=== PATIENT | male | born 1940 | race Caucasian/White ===

== ENCOUNTER → 2019-03-28 14:55 | Outpatient (BNVA) | payer MEDICARE, OTHER, SELFPAY | PROVIDERS: Family Provider Family Medicine; PCP Family Medicine; Visit Provider Internal Medicine Cardiovascular Disease | DX: I48.91 Unspecified atrial fibrillation (principal) | CPT/HCPCS: 85610 ==

== ENCOUNTER → 2019-04-17 08:51 | Outpatient (BNVA) | payer MEDICARE, OTHER, SELFPAY | PROVIDERS: Family Provider Family Medicine; PCP Family Medicine; Visit Provider Internal Medicine Cardiovascular Disease | DX: I48.91 Unspecified atrial fibrillation (principal) | CPT/HCPCS: 85610 ==

== ENCOUNTER → 2019-05-15 08:54 | Outpatient (BNVA) | payer MEDICARE, OTHER, SELFPAY | PROVIDERS: Family Provider Family Medicine; PCP Family Medicine; Visit Provider Internal Medicine Cardiovascular Disease | DX: I48.91 Unspecified atrial fibrillation (principal) | CPT/HCPCS: 85610 ==

== ENCOUNTER → 2019-06-12 09:07 | Outpatient (BNVA) | payer MEDICARE, OTHER, SELFPAY | PROVIDERS: Family Provider Family Medicine; PCP Family Medicine; Visit Provider Internal Medicine Cardiovascular Disease | DX: I48.91 Unspecified atrial fibrillation (principal) | CPT/HCPCS: 85610 ==

== ENCOUNTER → 2019-07-10 09:56 | Outpatient (BNVA) | payer MEDICARE, OTHER, SELFPAY | PROVIDERS: Family Provider Family Medicine; PCP Family Medicine; Visit Provider Internal Medicine Cardiovascular Disease | DX: I48.11 Longstanding persistent atrial fibrillation (principal); Z95.0 Presence of cardiac pacemaker; I10 Essential (primary) hypertension; E78.2 Mixed hyperlipidemia; I65.23 Occlusion and stenosis of bilateral carotid arteries; I63.10 Cerebral infarction due to embolism of unspecified precerebral artery | CPT/HCPCS: 85610 ==

== ENCOUNTER 2020-10-07 06:57 | Outpatient (CLI) | payer MEDICARE, OTHER, SELFPAY ==
--- NOTE | 2020-10-07 07:15 | USCV_ITS ---
Miguel Vernon Age: 80 Gender: M : 1940 Exam Date: 10/07/2020 07:10 Ordering Phys: Kg Barahona MD ([email or web address]) Technologist: Arlene Walker Exam Location: [facility] [place] Indication: RECHECK OF CCA STENOSIS Risk Factors: Unknown Previous Vascular Surgery: None Right Brachial BP: / Left Brachial BP: / Right Left Velocity (cm/s) Spectral Plaque Velocity (cm/s) Spectral Plaque Syst/Diast Broadening Syst/Diast Broadening 112.40/19.30 Prox CCA 88.40 / 20.80 66.40/ 12.80 Hetro Mid CCA 85.30 / 18.70 Hetro 92.10/ 23.50 Hetro Distal CCA 98.80 / 18.70 Hetro 120.60/28.10 Hetro Prox ICA 83.20 / 22.90 Hetro 83.50/ 19.40 Hetro Mid ICA 102.80/ 29.80 Hetro 78.90/ 17.80 Distal ICA 96.50 / 22.60 132.70 Hetro ECA 122.80 Hetro 1.82 ICA/CCA 1.21 Antegrade Vertebral Antegrade 49.90/ 17.70 cm/s 20.70/ 7.40 cm/s Bi Subclavian Bi 122.8 103.1 0 0 FINDINGS Moderate dense irregular plaques at the bifurcations and internal carotid arteries bilaterally. Mild diffuse plaques in the common carotid arteries bilaterally. Antegrade flow in the vertebral arteries bilaterally. Normal Doppler flow velocities in the subclavian and external carotid arteries bilaterally CONCLUSIONS Moderate dense irregular plaques at the bifurcations and internal carotid arteries bilaterally with elevated Doppler flow velocities consistent with less than 50% stenosis. Mild diffuse plaques in the common carotid arteries bilaterally. No significant stenosis in the subclavian or vertebral arteries, based on the above findings. Compared to the previous study from 01/09/2019, there may not be a significant Dr Kg Barahona MD [facility] (Electronically Signed) Final Date: 07 October 2020 09:03 S
== END 2020-10-07 06:58 | disposition home or self-care (01) ==
PROVIDERS: PCP Family Medicine; Visit Provider Internal Medicine Cardiovascular Disease
DX: I65.23 Occlusion and stenosis of bilateral carotid arteries (principal); I77.9 Disorder of arteries and arterioles, unspecified
CPT/HCPCS: 93880

== ENCOUNTER → 2021-05-09 08:27 | Outpatient (BNVA) | payer MEDICARE, OTHER, SELFPAY | PROVIDERS: PCP Family Medicine; Visit Provider Internal Medicine Cardiovascular Disease | DX: Z79.01 Long term (current) use of anticoagulants (principal) ==

== ENCOUNTER → 2021-05-13 15:57 | Outpatient (BNVA) | payer MEDICARE, OTHER, SELFPAY | PROVIDERS: PCP Family Medicine; Visit Provider Internal Medicine Cardiovascular Disease | DX: Z79.01 Long term (current) use of anticoagulants (principal) ==

== ENCOUNTER → 2021-05-21 14:44 | Outpatient (BNVA) | payer MEDICARE, OTHER, SELFPAY | PROVIDERS: PCP Family Medicine; Visit Provider Internal Medicine Cardiovascular Disease | DX: Z79.01 Long term (current) use of anticoagulants (principal) ==

== ENCOUNTER → 2021-05-28 10:17 | Outpatient (BNVA) | payer MEDICARE, OTHER, SELFPAY | PROVIDERS: PCP Family Medicine; Visit Provider Internal Medicine Cardiovascular Disease | DX: I48.11 Longstanding persistent atrial fibrillation (principal); Z79.01 Long term (current) use of anticoagulants ==

== ENCOUNTER → 2021-06-06 08:40 | Outpatient (BNVA) | payer MEDICARE, OTHER, SELFPAY | PROVIDERS: PCP Family Medicine; Visit Provider Internal Medicine Cardiovascular Disease | DX: Z79.01 Long term (current) use of anticoagulants (principal) ==

== ENCOUNTER → 2021-06-13 10:52 | Outpatient (BNVA) | payer MEDICARE, OTHER, SELFPAY | PROVIDERS: PCP Family Medicine; Visit Provider Internal Medicine Cardiovascular Disease | DX: Z79.01 Long term (current) use of anticoagulants (principal) ==

== ENCOUNTER → 2021-06-17 15:52 | Outpatient (BNVA) | payer MEDICARE, OTHER, SELFPAY | PROVIDERS: PCP Family Medicine; Visit Provider Internal Medicine Cardiovascular Disease | DX: Z79.01 Long term (current) use of anticoagulants (principal) ==

== ENCOUNTER → 2021-06-25 08:48 | Outpatient (BNVA) | payer MEDICARE, OTHER, SELFPAY | PROVIDERS: PCP Family Medicine; Visit Provider Internal Medicine Cardiovascular Disease | DX: Z79.01 Long term (current) use of anticoagulants (principal) ==

== ENCOUNTER → 2021-07-02 08:35 | Outpatient (BNVA) | payer MEDICARE, OTHER, SELFPAY | PROVIDERS: PCP Family Medicine; Visit Provider Internal Medicine Cardiovascular Disease | DX: Z79.01 Long term (current) use of anticoagulants (principal) ==

== ENCOUNTER → 2021-07-10 08:40 | Outpatient (BNVA) | payer MEDICARE, OTHER, SELFPAY | PROVIDERS: PCP Family Medicine; Visit Provider Internal Medicine Cardiovascular Disease | DX: Z79.01 Long term (current) use of anticoagulants (principal) ==

== ENCOUNTER → 2021-07-17 08:18 | Outpatient (BNVA) | payer MEDICARE, OTHER, SELFPAY | PROVIDERS: PCP Family Medicine; Visit Provider Internal Medicine Cardiovascular Disease | DX: Z79.01 Long term (current) use of anticoagulants (principal) ==

== ENCOUNTER → 2021-07-24 09:50 | Outpatient (BNVA) | payer MEDICARE, OTHER, SELFPAY | PROVIDERS: PCP Family Medicine; Visit Provider Internal Medicine Cardiovascular Disease | DX: Z79.01 Long term (current) use of anticoagulants (principal) ==

== ENCOUNTER → 2021-08-01 09:56 | Outpatient (BNVA) | payer MEDICARE, OTHER, SELFPAY | PROVIDERS: PCP Family Medicine; Visit Provider Internal Medicine Cardiovascular Disease | DX: Z79.01 Long term (current) use of anticoagulants (principal) ==

== ENCOUNTER → 2021-08-06 09:19 | Outpatient (BNVA) | payer MEDICARE, OTHER, SELFPAY | PROVIDERS: PCP Family Medicine; Visit Provider Internal Medicine Cardiovascular Disease | DX: Z79.01 Long term (current) use of anticoagulants (principal) ==

== ENCOUNTER → 2021-08-14 08:54 | Outpatient (BNVA) | payer MEDICARE, OTHER, SELFPAY | PROVIDERS: PCP Family Medicine; Visit Provider Internal Medicine Cardiovascular Disease | DX: Z79.01 Long term (current) use of anticoagulants (principal) ==

== ENCOUNTER → 2021-08-20 16:38 | Outpatient (BNVA) | payer MEDICARE, OTHER, SELFPAY | PROVIDERS: PCP Family Medicine; Visit Provider Internal Medicine Cardiovascular Disease | DX: Z79.01 Long term (current) use of anticoagulants (principal) ==

== ENCOUNTER → 2021-08-28 10:36 | Outpatient (BNVA) | payer MEDICARE, OTHER, SELFPAY | PROVIDERS: PCP Family Medicine; Visit Provider Internal Medicine Cardiovascular Disease | DX: I10 Essential (primary) hypertension (principal); Z95.0 Presence of cardiac pacemaker; Z86.73 Personal history of transient ischemic attack (TIA), and cerebral infarction without residual deficits; I65.23 Occlusion and stenosis of bilateral carotid arteries; E78.2 Mixed hyperlipidemia; I48.11 Longstanding persistent atrial fibrillation; Z79.01 Long term (current) use of anticoagulants; Z87.891 Personal history of nicotine dependence | CPT/HCPCS: 99213; 99214 ==

== ENCOUNTER → 2021-09-04 08:17 | Outpatient (BNVA) | payer MEDICARE, OTHER, SELFPAY | PROVIDERS: PCP Family Medicine; Visit Provider Internal Medicine Cardiovascular Disease | DX: Z79.01 Long term (current) use of anticoagulants (principal) ==

== ENCOUNTER → 2021-09-10 09:43 | Outpatient (BNVA) | payer MEDICARE, OTHER, SELFPAY | PROVIDERS: PCP Family Medicine; Visit Provider Internal Medicine Cardiovascular Disease | DX: Z79.01 Long term (current) use of anticoagulants (principal) ==

== ENCOUNTER → 2021-09-17 09:51 | Outpatient (BNVA) | payer MEDICARE, OTHER, SELFPAY | PROVIDERS: PCP Family Medicine; Visit Provider Internal Medicine Cardiovascular Disease | DX: Z79.01 Long term (current) use of anticoagulants (principal) ==

== ENCOUNTER → 2021-09-22 09:24 | Outpatient (BNVA) | payer MEDICARE, OTHER, SELFPAY | PROVIDERS: PCP Family Medicine; Visit Provider Internal Medicine Cardiovascular Disease | DX: Z79.01 Long term (current) use of anticoagulants (principal) ==

== ENCOUNTER → 2022-02-26 11:09 | Outpatient (BNVA) | payer MEDICARE, OTHER, SELFPAY | PROVIDERS: PCP Family Medicine; Visit Provider Internal Medicine Cardiovascular Disease | DX: I48.11 Longstanding persistent atrial fibrillation (principal); Z79.01 Long term (current) use of anticoagulants; Z79.82 Long term (current) use of aspirin; Z95.0 Presence of cardiac pacemaker; I10 Essential (primary) hypertension; I65.23 Occlusion and stenosis of bilateral carotid arteries; E78.2 Mixed hyperlipidemia; Z86.73 Personal history of transient ischemic attack (TIA), and cerebral infarction without residual deficits; Z87.891 Personal history of nicotine dependence | CPT/HCPCS: 99214 ==

== ENCOUNTER → 2022-03-23 15:10 | Outpatient (BNVA) | payer MEDICARE, OTHER, SELFPAY | PROVIDERS: PCP Family Medicine; Referring Provider Family Medicine; Visit Provider Nurse Practitioner Family | DX: D48.9 Neoplasm of uncertain behavior, unspecified (principal); L57.0 Actinic keratosis; L82.1 Other seborrheic keratosis; L81.4 Other melanin hyperpigmentation | CPT/HCPCS: 88305 ==

== ENCOUNTER 2022-04-02 15:32 | Outpatient (CLI) | payer MEDICARE, OTHER, SELFPAY ==
--- NOTE | 2022-04-02 15:45 | USCV_ITS ---
Saulo Miguel Age: 81 Gender: M : 1940 Exam Date: 04/02/2022 15:51 Ordering Phys: Kg Barahona MD ([email or web address]/[facility]) Technologist: IVETH Exam Location: [facility] [place] Indication: Carotid Occlusion Risk Factors: Previous Vascular Surgery: Right Brachial BP: / Left Brachial BP: / Right Left Velocity (cm/s) Spectral Plaque Velocity (cm/s) Spectral Plaque Syst/Diast Broadening Syst/Diast Broadening 51.90/ 11.20 Prox CCA 74.30 / 13.10 51.30/ 14.50 Mid CCA 54.60 / 9.90 49.30/ 10.50 Distal CCA 67.00 / 15.10 90.90/ 22.50 Prox ICA 104.10/ 26.40 90.90/ 24.10 Mid ICA 89.30 / 20.20 42.70/ 13.80 Distal ICA 92.40 / 17.90 85.40 ECA 102.50 1.75 ICA/CCA 1.40 Antegrade Vertebral Antegrade 36.20/ 13.80 cm/s 30.40/ 8.00 cm/s Subclavian 74.90 113.4 0 FINDINGS Moderate heterogenous plaques at the bifurcations bilaterally. Mild to moderate diffuse plaques in the common carotid and internal carotid arteries Antegrade flow in the vertebral arteries bilaterally. Normal Doppler flow velocities in the external carotid, vertebral and subclavian arteries bilaterally CONCLUSIONS Moderate heterogenous plaques at the bifurcations bilaterally suggesting less than 50% stenosis. Mild to moderate diffuse plaques in the common carotid and internal carotid arteries bilaterally. Compared to the study from 10/07/2020, there may not be a significant change Dr Kg Barahona MD [facility] (Electronically Signed) Final Date: 06 April 2022 08:29 S
== END 2022-04-02 15:33 | disposition home or self-care (01) ==
PROVIDERS: PCP Family Medicine; Visit Provider Internal Medicine Cardiovascular Disease
DX: I65.23 Occlusion and stenosis of bilateral carotid arteries (principal); I77.9 Disorder of arteries and arterioles, unspecified
CPT/HCPCS: 93880

== ENCOUNTER → 2022-07-30 07:59 | Outpatient (BNVA) | payer MEDICARE, OTHER, SELFPAY | PROVIDERS: PCP Family Medicine; Visit Provider Internal Medicine Cardiovascular Disease | DX: Z45.010 Encounter for checking and testing of cardiac pacemaker pulse generator [battery] (principal) | CPT/HCPCS: 93296 ==

== ENCOUNTER → 2022-09-17 09:21 | Outpatient (BNVA) | payer MEDICARE, OTHER, SELFPAY | PROVIDERS: PCP Family Medicine; Visit Provider Internal Medicine Cardiovascular Disease | DX: I10 Essential (primary) hypertension (principal); Z95.0 Presence of cardiac pacemaker; I65.23 Occlusion and stenosis of bilateral carotid arteries; E78.2 Mixed hyperlipidemia; I48.11 Longstanding persistent atrial fibrillation; Z86.73 Personal history of transient ischemic attack (TIA), and cerebral infarction without residual deficits; Z87.891 Personal history of nicotine dependence; Z79.01 Long term (current) use of anticoagulants | CPT/HCPCS: 99214 ==

== ENCOUNTER 2022-12-10 08:17 | Outpatient (CLI) | payer MEDICARE, OTHER, SELFPAY ==
[2022-12-10 09:09] LABS: Anion Gap 11.9 (5-19); Blood Urea Nitrogen 15 mg/dL (8-23); Calcium 9.1 mg/dL (8.5-10.5); Carbon Dioxide 30 mmol/L (22-29); Chloride 100 mmol/L (98-107); Glucose 107 mg/dL (65-115); Osmolality Calculated 287 mOsm/kg (285-295); Potassium 3.9 mmol/L (3.5-5.1); Sodium 138 mmol/L (136-145)
== END 2022-12-10 08:18 | disposition home or self-care (01) ==
PROVIDERS: PCP Family Medicine; Visit Provider Internal Medicine Cardiovascular Disease
DX: I10 Essential (primary) hypertension (principal); I48.11 Longstanding persistent atrial fibrillation; I63.10 Cerebral infarction due to embolism of unspecified precerebral artery
CPT/HCPCS: 36415; 80048

== ENCOUNTER → 2023-03-30 10:42 | Outpatient (BNVA) | payer MEDICARE, OTHER, SELFPAY | PROVIDERS: PCP Family Medicine; Visit Provider Nurse Practitioner Family | DX: I48.11 Longstanding persistent atrial fibrillation (principal); I10 Essential (primary) hypertension; Z95.0 Presence of cardiac pacemaker; Z87.891 Personal history of nicotine dependence; Z79.01 Long term (current) use of anticoagulants; Z79.82 Long term (current) use of aspirin | CPT/HCPCS: 99214 ==

== ENCOUNTER 2023-09-20 09:18 | Outpatient (CLI) | payer MEDICARE, OTHER, SELFPAY ==
[2023-09-20 10:54] LABS: INR 4.89 (0.83-1.21); Prothrombin Time (Patient) 47.5 Seconds (12.0-15.1)
== END 2023-09-20 09:19 | disposition home or self-care (01) ==
PROVIDERS: PCP Family Medicine; Visit Provider Internal Medicine Cardiovascular Disease
DX: I48.11 Longstanding persistent atrial fibrillation (principal); Z79.01 Long term (current) use of anticoagulants
CPT/HCPCS: 36415; 85610

== ENCOUNTER → 2023-09-28 09:43 | Outpatient (BNVA) | payer MEDICARE, OTHER, SELFPAY | PROVIDERS: PCP Family Medicine; Visit Provider Internal Medicine Cardiovascular Disease | DX: I48.11 Longstanding persistent atrial fibrillation (principal); Z95.0 Presence of cardiac pacemaker; E78.2 Mixed hyperlipidemia; I65.23 Occlusion and stenosis of bilateral carotid arteries; I10 Essential (primary) hypertension; Z79.01 Long term (current) use of anticoagulants; Z87.891 Personal history of nicotine dependence | CPT/HCPCS: 99214 ==

== ENCOUNTER → 2023-10-13 10:22 | Outpatient (BNVA) | payer MEDICARE, OTHER, SELFPAY | PROVIDERS: PCP Family Medicine; Visit Provider Internal Medicine | DX: Z45.010 Encounter for checking and testing of cardiac pacemaker pulse generator [battery] (principal) | CPT/HCPCS: 93296 ==

== ENCOUNTER → 2023-10-26 08:01 | Outpatient (BNVA) | payer MEDICARE, OTHER, SELFPAY | PROVIDERS: PCP Family Medicine; Referring Provider Family Medicine; Visit Provider Specialist | DX: G62.9 Polyneuropathy, unspecified; M25.361 Other instability, right knee | CPT/HCPCS: 82607; 82746; 85651; 99204 ==

== ENCOUNTER → 2023-11-04 08:51 | Outpatient (BNVA) | payer MEDICARE, OTHER, SELFPAY | PROVIDERS: PCP Family Medicine; Visit Provider Nurse Practitioner | DX: M25.361 Other instability, right knee (principal); M17.11 Unilateral primary osteoarthritis, right knee; M21.061 Valgus deformity, not elsewhere classified, right knee | CPT/HCPCS: 73560; 73565 ==

== ENCOUNTER 2023-11-04 11:43 | Outpatient (CLI) | payer MEDICARE, OTHER, SELFPAY | END 2023-11-04 11:44 | disposition home or self-care (01) | LOC: SPT 11:43 | PROVIDERS: PCP Family Medicine; Visit Provider Nurse Practitioner | DX: Z46.89 Encounter for fitting and adjustment of other specified devices (principal); M25.361 Other instability, right knee | CPT/HCPCS: 97760; L1851 ==

== ENCOUNTER → 2023-12-17 09:09 | Outpatient (BNVA) | payer MEDICARE, OTHER, SELFPAY | PROVIDERS: PCP Family Medicine; Visit Provider Nurse Practitioner | DX: M17.11 Unilateral primary osteoarthritis, right knee (principal); M21.061 Valgus deformity, not elsewhere classified, right knee | CPT/HCPCS: 99213 ==

== ENCOUNTER → 2024-01-13 11:50 | Outpatient (BNVA) | payer MEDICARE, OTHER, SELFPAY | PROVIDERS: PCP Family Medicine; Visit Provider Internal Medicine Cardiovascular Disease | DX: Z45.010 Encounter for checking and testing of cardiac pacemaker pulse generator [battery] (principal) | CPT/HCPCS: 93296 ==

== ENCOUNTER 2024-03-08 08:13 | Outpatient (RCR) | payer MEDICARE, OTHER, SELFPAY | END 2024-03-31 23:59 | disposition home or self-care (01) | LOC: SPT 08:13 | PROVIDERS: PCP Family Medicine; Visit Provider Otolaryngology | DX: R42 Dizziness and giddiness (principal) | CPT/HCPCS: 97110; 97112; 97161 ==

== ENCOUNTER 2024-03-17 11:00 | Emergency (ER) | payer MEDICARE, OTHER, SELFPAY ==
[2024-03-17 11:10] VITALS: BP 134/69; PULSE 90; RESP 18; TEMP 36.7; O2SAT 92; BMI 27.8
--- NOTE | 2024-03-17 11:14 | ECG_ITS ---
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
--- NOTE | 2024-03-17 12:04 | XR_ITS ---
WS: [id number] XR chest 1V portable [id number] REASON FOR EXAM: Shortness of breath FINDINGS: The chest is unchanged compared to 03/02/2018. Cardiac device in place of the left chest with trans left subclavian vein leads to the right atrium a nd right ventricular apex. Mild tortuosity of the thoracic aorta. Heart at the upper limits of normal in size. Calcified granulomatous disease in both lungs. Irregular aeration in the mid and upper lung sinclair in dicative of central lobar emphysema and bullous lung disease. No acute pulmonary parenchymal or pleural findings. Mild degenerative spondylosis in the thoracic spine. XR/XR chest 1V portable [id number] IMPRESSION: Stable chest without acute abnormality.
[2024-03-17 13:25] LABS: Basophils % 0.2 %; Hematocrit 40.5 % (37-53); Lymphocytes # 0.8 10^3/uL (0.8-4.8); Mean Corpuscular HGB Conc 30.9 g/dL (30-55); Mean Corpuscular Hemoglobin 29.8 pg (27-33); Mean Corpuscular Volume 96.7 fl (82-101); Mean Platelet Volume 11.6 fL (7.4-10.4); Monocytes # 0.7 10^3/uL (0.2-0.9); Monocytes % 7.7 %; Neutrophils # 7.02 10^3/uL (1.8-7.7); Neutrophils % 82.9 %; Nucleated Red Blood Cells % 0 %; Platelet Count 244 10^3/cmm (157-399); Red Blood Count 4.19 10^6/uL (3.85-5.65); Red Cell Distribution Width 15.1 % (12.1-15.1); White Blood Count 8.47 10^3/uL (3.29-11.43)
[2024-03-17 13:41] LABS: Lactic Sepsis W/Reflex 1.5 mmol/L (0.5-2.2)
[2024-03-17 13:44] LABS: Troponin(5th) Baseline 32 ng/L (0-15)
[2024-03-17 14:01] LABS: Alanine Aminotransferase 25 U/L (0-41); Albumin Level 4.4 g/dL (3.5-5.2); Alkaline Phosphatase 92 U/L (40-130); Anion Gap 17.4 (5-19); Aspartate Amino Transferase 36 U/L (0-40); Blood Urea Nitrogen 15 mg/dL (8-23); C Reactive Protein 21.2 mg/L (0.0-4.9); Calcium 9.6 mg/dL (8.5-10.5); Carbon Dioxide 25 mmol/L (22-29); Chloride 100 mmol/L (98-107); Creatinine Clr Calc Pharmacy 77.7899; Globulin 2.6 g/dL (1.3-4.6); Glucose 122 mg/dL (65-115); NT Pro B Type Natriuretic Pept 2992 pg/mL (0-450); Osmolality Calculated 288 mOsm/kg (285-295); Potassium 4.4 mmol/L (3.5-5.1); Sodium 138 mmol/L (136-145); Total Bilirubin 2.3 mg/dL (0.15-1.2)
--- NOTE | 2024-03-17 14:05 | ECG_ITS ---
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1940 Requested By: Sheri Pham Order Number: [id number] Reading MD: YINA WILKINSON Measurements Intervals [place] Rate: 76 P: 0 TN: 0 QRS: 124 QRSD: 127 T: -54 QT: 403 QTc: 453 Interpretive Statements ATRIAL FIBRILLATION RIGHT BUNDLE BRANCH BLOCK [120+ ms QRS DURATION, UPRIGHT V1, 40+ ms S IN I/aVL/V4/V5/V6] LEFT POSTERIOR FASCICULAR BLOCK [QRS AXIS > 109, INFERIOR Q] ST DEVIATION AND MARKED T-WAVE ABNORMALITY, CONSIDER ANTEROLATERAL ISCHEMIA [-0.5+ mV T-WAVE IN I/aVL/V3-V6] ST DEVIATION AND MODERATE T-WAVE ABNORMALITY, CONSIDER INFERIOR ISCHEMIA [-0.1+ mV T-WAVE IN II/aVF] Electronically Signed On 03-17-2024 23:32:04 PHOTOVOLTAIC TECHNICIAN by YINA WILKINSON [email or web address]
[2024-03-17 15:19] LABS: Troponin 5 2HR 27.63 ng/L (0-15)
[2024-03-17 15:21] LABS: Troponin 5 2HR Delta -4.37 ABS# (0-10)
[2024-03-17 15:52] LABS: INR 2.12 (0.8-1.2)
[2024-03-17] MEDS: ipratropium-albuterol 3 mL Neb INHALATION (16:00)
[2024-03-17] MEDS: albuterol 2.5 mg/3 mL Neb 5 MG INHALATION (16:00)
--- NOTE | 2024-03-17 16:00 | W.ED.SOB ---
HPI - SOB/Dyspnea General: Chief Complaint: Shortness of Breath/Dyspnea Stated Complaint: trouble breathing Time Seen by Provider: 03/17/24 15:32 History of Present Illness: HPI Narrative: Chief complaint shortness of breath. The patient states that he is having wheezing and congestion. Patient states that on Wednesday or Wednesday he started having nasal congestion drainage cough. He states he has a lot of phlegm that he is coughing up. No chest pain. No abdominal pain. No vomiting or diarrhea. He states that he might of had a fever when the symptoms started. He went to urgent care on Wednesday and got antibiotic steroid and cough medicine. He does not know what the name of the antibiotic was. He states he started on Wednesday but he was still wheezing and coughing today so he went back and they told him to come here. He does not have breathing treatments at home. No history of asthma or COPD. No history of PE or DVT that he is aware of. He does take warfarin therapy. No black or bloody stools. Related Data Home Medications Medication Instructions Recorded Confirmed amlodipine 10 mg tablet 10 mg PO QAM 03/17/24 03/17/24 aspirin 81 mg tablet,delayed 81 mg PO QAM 03/17/24 03/17/24 release (Adult Low Dose Aspirin) atorvastatin 20 mg tablet 20 mg PO QPM 03/17/24 03/17/24 benzonatate 200 mg capsule 200 mg PO TID 03/17/24 03/17/24 chlorthalidone 25 mg tablet 25 mg PO QAM 03/17/24 03/17/24 diclofenac sodium 1 % topical gel 4 g topical QID PRN Pain 03/17/24 03/17/24 dorzolamide 2 % eye drops 1 drp ophthalmic (eye) BID 03/17/24 03/17/24 doxycycline hyclate 100 mg capsule 100 mg PO BID 03/17/24 03/17/24 latanoprost 0.005 % eye drops 1 drp ophthalmic (eye) BEDTIME 03/17/24 03/17/24 losartan 100 mg tablet 100 mg PO DAILY 03/17/24 03/17/24 potassium chloride 8 mEq 8 meq PO QAM 03/17/24 03/17/24 tablet,extended release prednisone 5 mg tablet 5 mg PO DAILY 03/17/24 03/17/24 Previous Rx's Medication Instructions Recorded warfarin 6 mg tablet 3 mg PO DIRECTED #90 tabs 08/20/23 warfarin 5 mg tablet 5 mg PO DAILY #90 tabs 09/06/23 hydralazine 25 mg tablet 50 mg (2 x 25 mg) PO BID #360 tabs 09/20/23 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 11/04/23 metoprolol tartrate 50 mg tablet 75 mg (1.5 x 50 mg) PO BID #180 12/16/23 tabs cyanocobalamin (vitamin B-12) 1,000 mcg SUBCUT .monthly #1 mL 02/28/24 1,000 mcg/mL injection solution albuterol sulfate 90 mcg/actuation 2 inh inhalation Q4H PRN shortness 03/17/24 aerosol inhaler (Ventolin HFA) of breath or wheezing #6.7 grams Allergies Allergy/AdvReac Type Severity Reaction Status Date / Time oxycodone Allergy Unknown Verified 12/17/23 09:21 lisinopril AdvReac Unknown cough Verified 12/17/23 09:21 [facility] ED PFSH: Medical History Acquired valgus deformity of knee Primary osteoarthritis of right knee History of nonmelanoma skin cancer Warfarin anticoagulation Hypertension CVA (cerebral vascular accident) Bilateral carotid artery stenosis Hyperlipidemia Hip fx Atrial fibrillation Surgical History History of permanent cardiac pacemaker placement H/O Spinal surgery Family History Father Cancer Lung disease Mother Dementia Brother Diabetes Denies family history of CAD (coronary artery disease) Clotting disorder Chronic kidney disease (CKD) Suicide Anesthesia complication Bleeding disorder Stroke Social History Smoking and tobacco/nicotine status: former use of tobacco/nicotine Alcohol intake: never Substance/Drug Use: never Physical Exam Narrative: EXAM NARRATIVE: Patient is alert and talkative. He is in mild distress with bilateral expiratory wheezing. He has prolonged expiratory phase and frequently coughing. Heart is regular rhythm. Abdomen soft nontender. He has 1+ pitting edema both legs. No calf tenderness. Neck is supple. Conjunctive appears normal. Pupils equal and reactive. He moves his arms freely. He has no pain with sitting up and laying down. Mild accessory muscle use with breathing after coughing fit. No retractions. Course Vital Signs: Vital signs: Vital Signs Temperature 98.1 F 03/17/24 11:10 Pulse Rate 82 03/17/24 17:17 Respiratory Rate 18 03/17/24 16:03 Blood Pressure 155/80 03/17/24 17:17 Pulse Oximetry 92 03/17/24 17:17 Oxygen Delivery Me thod Room Air 03/17/24 16:03 MDM - SOB/Dyspnea Medical Decision Making Patient presents complaining of cough nasal congestion drainage that started on Wednesday. CHF, pneumonia, acute bronchitis, broad differential however patient has significant bilateral expiratory wheezing and prolonged expiratory phase. Patient states he is on antibiotics steroids and cough medication. He does have some mild leg edema but denies any chest pain or chest discomfort. He states he has had a rattle in his cough. Patient is on warfarin therapy and PE would be unlikely and history not suggestive of PE or exam. Chest x-ray, CBC troponin EKG CMP proBNP ordered from triage. Patient however has no chest pain or chest discomfort. His troponin was 32 and repeat was 27.63 with a negative delta of just over 4. BNP was 2009 or 92. Total bili was 2.3 but exam not suggestive of biliary obstruction. EKG shows paced rhythm to my interpretation. Chest x-ray is negative for acute process per radiology. White blood cell count was within normal limits. Repeat EKG shows atrial fibs with right bundle branch block nonspecific ST segment changes to my interpretation and ST depression in the septal and lateral leads with inverted T waves. Unfortunately I do not have old EKG to compare to currently other than from earlier today.. Patient has known history of A-fib and is on warfarin therapy. Check patient's INR and he is therapeutic. I ordered 20 mg Lasix IV with his elevated BNP and his known A-fib. Patient does not want to wait for the IV Lasix. He states he feels much much better after the breathing treatment. Patient is yelling in the hallway and demanding discharge. I advised the patient pending 6-hour troponin and reasoning for this. He wants to go home and does not want to stay for it. The respiratory panel has not returned yet. Patient states he has been here too long and wants to go home and declines further testing after informed discussion. Will convert his Lasix to p.o. and administered to him orally. I advised him to follow-up with his doctor. I prescribed albuterol MDI and advised on how to use it. I advised him to continue the steroids that were prescribed to him and to follow-up on his test results with his doctor and to come back if he changes his mind for any reason. Patient is capable and informed and requesting discharge. Patient understands that his delta troponin was outside normal limits although most likely related to his A-fib and CHF and less likely acute coronary event based on exam and history, I advised him limitations of the testing and reasoning for a 6-hour troponin Lab Data 03/17/24 12:34 03/17/24 12:34 Labs/Radiology: Radiology Impressions Chest X-Ray 03/17/24 12:04 IMPRESSION: Stable chest without acute abnormality. Laboratory Results WBC 8.47 10^3/uL (3.29-11.43) 03/17/24 12:34 RBC 4.19 10^6/uL (3.85-5.65) 03/17/24 12:34 Hgb 12.50 g/dL (11.27-16.99) 03/17/24 12:34 Hct 40.5 % (37-53) 03/17/24 12:34 MCV 96.7 fl (82-101) 03/17/24 12:34 MCH 29.8 pg (27-33) 03/17/24 12:34 MCHC 30.9 g/dL (30-55) 03/17/24 12:34 RDW 15.1 % (12.1-15.1) 03/17/24 12:34 Plt Count 244 10^3/cmm (157-399) 03/17/24 12:34 MPV 11.6 fL (7.4-10.4) H 03/17/24 12:34 Neut % (Auto) 82.9 % 03/17/24 12:34 Lymph % (Auto) 9.0 % 03/17/24 12:34 [place] % (Auto) 7.7 % 03/17/24 12:34 Eos % (Auto) 0.0 % 03/17/24 12:34 Baso % (Auto) 0.2 % 03/17/24 12:34 Neut # (Auto) 7.02 10^3/uL (1.8-7.7) 03/17/24 12:34 Lymph # (Auto) 0.8 10^3/uL (0.8-4.8) 03/17/24 12:34 [place] # (Auto) 0.7 10^3/uL (0.2-0.9) 03/17/24 12:34 Eos # (Auto) 0.0 10^3/uL (0.0-0.8) 03/17/24 12:34 Baso # (Auto) 0.0 10^3/uL (0.0-0.1) 03/17/24 12:34 Nucleated RBC % (auto) 0 % 03/17/24 12:34 Nucleated RBCs # 0.0 /100WBC 03/17/24 12:34 PT 25.00 SECONDS (12.1-14.9) H 03/17/24 12:34 INR 2.12 (0.8-1.2) H 03/17/24 12:34 Sodium 138 mmol/L (136-145) 03/17/24 12:34 Potassium 4.4 mmol/L (3.5-5.1) 03/17/24 12:34 Chloride 100 mmol/L (98-107) 03/17/24 12:34 Carbon Dioxide 25 mmol/L (22-29) 03/17/24 12:34 Anion Gap 17.4 (5-19) 03/17/24 12:34 BUN 15 mg/dL (8-23) 03/17/24 12:34 Creatinine 0.7 mg/dL (0.7-1.2) 03/17/24 12:34 GFR Calculation Not Reportable 03/17/24 12:34 Glucose 122 mg/dL (65-115) H 03/17/24 12:34 Calculated Osmolality 288 mOsm/kg (285-295) 03/17/24 12:34 Lactic Acid 1.5 mmol/L (0.5-2.2) 03/17/24 12:34 Calcium 9.6 mg/dL (8.5-10.5) 03/17/24 12:34 Total Bilirubin 2.3 mg/dL (0.15-1.2) H 03/17/24 12:34 AST 36 U/L (0-40) 03/17/24 12:34 ALT 25 U/L (0-41) 03/17/24 12:34 Alkaline Phosphatase 92 U/L (40-130) 03/17/24 12:34 Troponin T Baseline 32 ng/L (0-15) H 03/17/24 12:34 Troponin T 120 Minute 27.63 ng/L (0-15) H 03/17/24 14:57 Delta Troponin T -4.37 ABS# (0-10) L 03/17/24 14:57 C-Reactive Protein 21.2 mg/L (0.0-4.9) H 03/17/24 12:34 NT-Pro-B Natriuret Pep 2992 pg/mL (0-450) H 03/17/24 12:34 Total Protein 7.0 g/dL (6.6-8.7) 03/17/24 12:34 Albumin 4.4 g/dL (3.5-5.2) 03/17/24 12:34 Globulin 2.6 g/dL (1.3-4.6) 03/17/24 12:34 All radiology interpretation(s) finalized by discharge Discharge Plan Discharge Patient Disposition: Home Clinical Impression: CHF (congestive heart failure), Acute bronchitis with bronchospasm Atrial fibrillation Qualifiers: Atrial fibrillation type: longstanding persistent Qualified Code(s): I48.11 - Longstanding persistent atrial fibrillation Condition: Stable Prescriptions: New albuterol sulfate [Ventolin HFA] 90 mcg/actuation HFA aerosol inhaler 2 inh inhalation Q4H PRN (Reason: shortness of breath or wheezing) Qty: 6.7 0RF Rx Instructions: dispense with spacer No Action (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 See Rx Instructions .Route .MEDSUPPLY Qty: 1 0RF Rx Instructions: As directed warfarin 6 mg tablet 3 mg PO DIRECTED Qty: 90 3RF Protocol: Dose Management Condition: Wednesday Dose/Route: 5 mg Instruction: 1 x 5 mg tablet Condition: Wednesday Dose/Route: 5 mg Instruction: 1 x 5 mg tablet Condition: Wednesday Dose/Route: 5 mg Instruction: 1 x 5 mg tablet Condition: Wednesday Dose/Route: 5 mg Instruction: 1 x 5 mg tablet Condition: Dose/Route: 5 mg Instruction: 1 x 5 mg tablet Condition: Wednesday Dose/Route: 5 mg Instruction: 1 x 5 mg tablet Condition: Wednesday Dose/Route: 5 mg Instruction: 1 x 5 mg tablet Protocol Text: Adjustment Start Date: Wednesday03/13/24 INR Value: 2.3 INR Date: 03/13/24 Recheck Date: 03/20/24 warfarin 5 mg tablet 5 mg PO DAILY Qty: 90 3RF Protocol: Dose Management Condition: Wednesday Dose/Route: 5 mg Instruction: 1 x 5 mg tablet Condition: Wednesday Dose/Route: 5 mg Instruction: 1 x 5 mg tablet Condition: Wednesday Dose/Route: 5 mg Instruction: 1 x 5 mg tablet Condition: Wednesday Dose/Route: 5 mg Instruction: 1 x 5 mg tablet Condition: Dose/Route: 5 mg Instruction: 1 x 5 mg tablet Condition: Wednesday Dose/Route: 5 mg Instruction: 1 x 5 mg tablet Condition: Wednesday Dose/Route: 5 mg Instruction: 1 x 5 mg tablet Protocol Text: Adjustment Start Date: Wednesday03/13/24 INR Value: 2.3 INR Date: 03/13/24 Recheck Date: 03/20/24 Rx Instructions: per INR protocol hydralazine 25 mg tablet 50 mg PO BID Qty: 360 3RF metoprolol tartrate 50 mg tablet 75 mg PO BID Qty: 180 1RF cyanocobalamin (vitamin B-12) 1,000 mcg/mL solution 1,000 mcg SUBCUT .monthly Qty: 1 3RF atorvastatin 20 mg tablet 20 mg PO QPM aspirin [Adult Low Dose Aspirin] 81 mg tablet,delayed release (DR/EC) 81 mg PO QAM potassium chloride 8 mEq tablet extended release 8 meq PO QAM amlodipine 10 mg tablet 10 mg PO QAM losartan 100 mg tablet 100 mg PO DAILY Rx Instructions: qpm diclofenac sodium 1 % gel 4 g topical QID PRN (Reason: Pain) Rx Instructions: apply to single knee, ankle, foot; for foot includes sole/toes/top of foot latanoprost 0.005 % drops 1 drp ophthalmic (eye) BEDTIME doxycycline hyclate 100 mg capsule 100 mg PO BID benzonatate 200 mg capsule 200 mg PO TID prednisone 5 mg Tablet 5 mg PO DAILY chlorthalidone 25 mg tablet 25 mg PO QAM dorzolamide 2 % drops 1 drp ophthalmic (eye) BID Discharge Orders: Discharge ED (Routine); Ordered 03/17/24 Ordered By: Dionisio Peguero Referrals: Kale Agosto MD [Primary Care Provider] - Activity Restrictions/Additional Instructions: Please follow-up on the results of your respiratory panel with your doctor. Please follow-up on your other test results with your doctor. Please come back if you change your mind for any reason. Come back if you develop increased shortness of breath, chest pain or chest discomfort, increased welling in your legs, feeling worse instead of better, any concerns. Coding Level of Care Code ED Bearing Press Machine Operator for Shae Andrews
[2024-03-17 16:02] VITALS: BP 153/81; PULSE 74; O2SAT 93
[2024-03-17 16:03] VITALS: PULSE 81; RESP 18; O2SAT 93
[2024-03-17 16:08] VITALS: PULSE 80
--- NOTE | 2024-03-17 16:19 | PC.PHAR ---
Pt picked up 3 meds from [facility] on 03/14/24: Doxycycline Hyclate 100mg Capsule bid, Prednisone 20mg daily, and benzonatate 200mg tid.
[2024-03-17 17:17] VITALS: BP 155/80; PULSE 82; O2SAT 92
[2024-03-17 17:40] LABS: Adenovirus Not Detected (NOT DETECT); Chlamydia Pneumoniae Not Detected (NOT DETECT); Coronavirus 229E,HKU1,NL63,OC4 Not Detected (NOT DETECT); Human Metapneumovirus Not Detected (NOT DETECT); Human Rhinovirus/Enterovirus Not Detected (NOT DETECT); Influenza A Detected (NOT DETECT); Influenza A H1 Not Detected (NOT DETECT); Influenza A H1-2009 Not Detected (NOT DETECT); Influenza A H3 Detected (NOT DETECT); Influenza B Not Detected (NOT DETECT); Mycoplasma Pneumoniae Not Detected (NOT DETECT); Parainfluenza Virus Type 1 Not Detected (NOT DETECT); Parainfluenza Virus Type 2 Not Detected (NOT DETECT); Parainfluenza Virus Type 3 Not Detected (NOT DETECT); Parainfluenza Virus Type 4 Not Detected (NOT DETECT); Respiratory Syncytial Virus A Not Detected (NOT DETECT); Respiratory Syncytial Virus B Not Detected (NOT DETECT); SARS-COV-2 Not Detected (NOT DETECT)
== END 2024-03-17 17:18 | disposition home or self-care (01) ==
PROVIDERS: Emergency Medicine; Emergency Provider Emergency Medicine; PCP Family Medicine
DX: I11.0 Hypertensive heart disease with heart failure (principal); I50.9 Heart failure, unspecified; J20.9 Acute bronchitis, unspecified; I48.11 Longstanding persistent atrial fibrillation; Z79.01 Long term (current) use of anticoagulants; Z79.82 Long term (current) use of aspirin; Z87.891 Personal history of nicotine dependence; Z86.73 Personal history of transient ischemic attack (TIA), and cerebral infarction without residual deficits; E78.5 Hyperlipidemia, unspecified
CPT/HCPCS: 12345; 36415; 71045; 80053; 83605; 83880; 84484; 85025; 85610; 86140; 87040; 87486; 87581; 87633; 93005; 94640; 99285; J7613

== ENCOUNTER 2024-04-01 06:30 | Outpatient (RCR) | payer MEDICARE, OTHER, SELFPAY | END 2024-04-12 15:30 | disposition home or self-care (01) | LOC: SPT 06:30 | PROVIDERS: PCP Family Medicine; Visit Provider Otolaryngology | DX: R42 Dizziness and giddiness (principal) | CPT/HCPCS: 97110 ==

== ENCOUNTER → 2024-04-13 09:44 | Outpatient (BNVA) | payer MEDICARE, OTHER, SELFPAY | PROVIDERS: PCP Family Medicine; Visit Provider Nurse Practitioner Family | DX: I48.11 Longstanding persistent atrial fibrillation (principal); E78.2 Mixed hyperlipidemia; I65.23 Occlusion and stenosis of bilateral carotid arteries; I10 Essential (primary) hypertension; Z95.0 Presence of cardiac pacemaker; Z79.01 Long term (current) use of anticoagulants; Z87.891 Personal history of nicotine dependence | CPT/HCPCS: 99214 ==

== ENCOUNTER 2024-05-09 08:18 | Outpatient (CLI) | payer MEDICARE, OTHER, SELFPAY ==
--- NOTE | 2024-05-09 08:30 | USCV_ITS ---
SauloMiguel alcantara Age: 83 Gender: M : 1940 Exam Date: 05/09/2024 08:34 Ordering Phys: Tricia Turner Technologist: [place] [facility] [place]: Edema BP: 140 / 80 HR: 61 Rhythm: Sinus Technical Quality: Adequate MEASUREMENTS (Male / Female) Normal Values 2D ECHO LV Diastolic Diameter PLAX 5.0 cm 4.2 - 5.9 / 3.9 - 5.3 cm IVS Diastolic Thickness 1.5 cm 0.6 - 1.0 / 0.6 - 0.9 cm IVS Systolic Thickness 2.3 cm LVPW Diastolic Thickness 1.3 cm 0.6 - 1.0 / 0.6 - 0.9 cm LVPW Systolic Thickness 1.9 cm LVOT Diameter 2.1 cm LV Ejection Fraction 2D Teich 64.4 % LV Ejection Fraction MOD 4C 67.3 % LV Ejection Fraction MOD 2C 54.7 % LV Ejection Fraction 2C AL 53.4 % LA Diameter 6.0 cm RA Systolic Volume 4C AL 46.8 ml RA Systolic Volume 4C MOD 45.8 ml Aorta at Sinotubular Diameter 2.8 cm IVC Diameter 3.0 cm M-MODE LA Ao Ratio MM 1.8 AV Cusp Separation MM 2.2 cm DOPPLER AV Peak Velocity 127.0 cm/s LVOT Peak Velocity 69.0 cm/s AV Area Cont Eq vti 1.7 cm squared AV Area Cont Eq pk 1.8 cm squared MV Area PHT 3.9 cm squared Mitral E to A Ratio 2.4 TV Peak Velocity 262.5 cm/s TR Peak Velocity 323.0 cm/s TR Peak Gradient 41.7 mmHg TV Peak E Velocity 140.0 cm/s PV Peak Velocity 111.0 cm/s FINDINGS Left Ventricle Normal left ventricular size, systolic function and wall thickness, with no regional wall motion abnormalities. Left ventricular ejection fraction is estimated at 60 %. Grade III/IV diastolic dysfunction (restrictive filling pattern), severely elevated filling pressures. Right Ventricle The right ventricle is normal in size and function. Right Atrium Moderately increased right atrial size. Left Atrium Moderately increased left atrial size. Mitral Valve Moderately thickened mitral valve. No mitral valve stenosis. Mild mitral valve regurgitation. Aortic Valve [id number] aortic valve stenosis. No aortic valve stenosis. No aortic valve regurgitation. Tricuspid Valve Mild tricuspid valve regurgitation. Pulmonic Valve Structurally normal pulmonic valve without significant stenosis. There is no pulmonic regurgitation. Pericardium Normal pericardium without effusion. Aorta Normal ascending aorta dimension. IVC The inferior vena cava appears normal. CONCLUSIONS Normal left ventricular size, systolic function and wall thickness, with no regional wall motion abnormalities. Left ventricular ejection fraction is estimated at 60 %. Grade III/IV diastolic dysfunction (restrictive filling pattern), severely elevated filling pressures. Moderately increased biatrial size. Moderately thickened mitral valve. No mitral valve stenosis. Mild mitral valve regurgitation. There is no pericardial effusion. Right atrial pressure is around 5 mm of mercury. Vikki Ferris MD (Electronically Signed) Final Date: 18 May 2024 12:54 S
== END 2024-05-09 08:19 | disposition home or self-care (01) ==
LOC: RAD 08:19
PROVIDERS: PCP Family Medicine; Visit Provider Nurse Practitioner Family
DX: I48.11 Longstanding persistent atrial fibrillation (principal); R79.89 Other specified abnormal findings of blood chemistry; R93.1 Abnormal findings on diagnostic imaging of heart and coronary circulation; I34.0 Nonrheumatic mitral (valve) insufficiency; I35.0 Nonrheumatic aortic (valve) stenosis; I07.1 Rheumatic tricuspid insufficiency
CPT/HCPCS: 93306

== ENCOUNTER → 2024-07-26 10:42 | Outpatient (BNVA) | payer MEDICARE, OTHER, SELFPAY | PROVIDERS: PCP Family Medicine; Visit Provider Internal Medicine Cardiovascular Disease | DX: Z45.018 Encounter for adjustment and management of other part of cardiac pacemaker (principal) | CPT/HCPCS: 93296 ==

== ENCOUNTER → 2024-10-23 11:22 | Outpatient (BNVA) | payer MEDICARE, OTHER, SELFPAY | PROVIDERS: PCP Family Medicine; Visit Provider Internal Medicine Cardiovascular Disease | DX: I48.11 Longstanding persistent atrial fibrillation (principal); Z95.0 Presence of cardiac pacemaker; E78.2 Mixed hyperlipidemia; I65.23 Occlusion and stenosis of bilateral carotid arteries; I10 Essential (primary) hypertension; Z79.01 Long term (current) use of anticoagulants; Z79.82 Long term (current) use of aspirin; Z87.891 Personal history of nicotine dependence | CPT/HCPCS: 99214 ==

== ENCOUNTER 2024-11-15 09:08 | Emergency (ER) | payer MEDICARE, OTHER, SELFPAY ==
--- NOTE | 2024-11-15 09:00 | CT_ITS ---
WS: [id number] CT HEAD NONCONTRAST HISTORY: Trauma TECHNIQUE: Contiguous axial imaging performed through the brain. Bone and soft tissue windows. Sagittal and coronal reformats reviewed. All CT scans at [facility] use at least one of these dose optimization techniques: automated exposure control; mA and/or kV adjustment per patient size (includes targeted exams where dose is matched to clinical indication); or iterative reconstruction. DLP: 1079.50 mGy.cm COMPARISON: 06/18/2014 No acute intracranial hemorrhage, midline shift or mass effect. Moderate symmetric atrophy and small vessel disease. Mild progression of atrophy since 2014. Ventricles: Ventricles are very slightly prominent on the basis of atrophy. Dense calcifications in the distal vertebral arteries and extending into the intracranial carotid arteries. Calcified plaque has increased since 2014. Paranasal sinuses: Small amount of debris in the posterior LEFT sphenoid sinus. Mastoid air cells: Well pneumatized. Calvarium and scalp: Subtle soft tissue contusion with laceration over the posterior high midline parietal bone. No fracture. CT/CT head wo con* [id number] IMPRESSION: 1. No acute intracranial hemorrhage or edema. 2. Mild progression of atrophy and moderate small vessel disease since 2014. 3. Scalp contusion with laceration centered over the high midline parietal reg ion.
[2024-11-15 09:08] VITALS: TEMP 36.6; O2SAT 98; BMI 26.4
[2024-11-15 09:16] VITALS: BP 137/65; PULSE 71; RESP 18; O2SAT 95
--- NOTE | 2024-11-15 10:07 | ED_ITS ---
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 He has had similar episodes before. No loss consciousness no vomiting. Patient is on Coumadin. No active bleeding. Associated symptoms: Deny neck pain Related Data Home Medications ?Medication ?Instructions ?Recorded ?Confirmed aspirin 81 mg tablet,delayed 81 mg PO QAM 03/17/24 release (Adult Low Dose Aspirin) dorzolamide 2 % eye drops 1 drp ophthalmic (eye) BID 0 03/17/24 11/15/24 latanoprost 0.005 % eye drops 1 drp ophthalmic (eye) B EDTIME 03/17/24 11/15/24 atorvastatin 20 mg tablet 20 mg PO QPM 11/15/24 losartan 100 mg tablet 100 mg PO QPM 11/15/2411/15 metoprolol tartrate 50 mg tablet 75 mg PO BID 11/15/24 11/15/24 potassium chloride 8 mEq 8 meq PO DAILY 11/15/2410/30 tablet,extended release warfarin 5 mg tablet See Rx Instructions .Route . COMPLEX 11/15/24 11/15/24 warfarin 6 mg tablet See Rx Instructions .Route . 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 #1 ea 11/04/23 cyanocobalamin (vitamin B-12) 1,000 mcg SUBCUT .monthl y #1 mL 02/28/24 1,000 mcg/mL injection solution amlodipine 5 mg tablet 5 mg PO DAILY #90 tabs 10/23 hydralazine 100 mg tablet 100 mg PO BID #180 tabs 10/30 09/22 Allergies Allergy/AdvReac Type Severity Reaction Status Date / Time oxycodone Allergy Unknown Verified 10/23/24 11:28 lisinopril AdvReac Unknown cough Verified 10/23/24 11:28 Review of Systems Const: Denies: fever(s) or chills Card: Denies: chest pain Resp: Denies: dyspnea GI: Denies: abdominal pain : Denies: dysuria, urinary frequency or urinary urgency Musc: Denies: neck pain or back pain Skin/Breast: Denies: rash PFSH ED PFSH: Medical History Acquired valgus deformity of knee Primary osteoarthritis of right knee History of nonmelanoma skin cancer Warfarin anticoagulation Hypertension CVA (cerebral vascular accident) Bilateral carotid artery stenosis Hyperlipidemia Hip fx Atrial fibrillation Surgical History History of permanent cardiac pacemaker placement H/O Spinal surgery Family History Father Cancer Lung disease Mother Dementia Brother Diabetes Denies family history of CAD (coronary artery disease) Clotting disorder Chronic kidney disease (CKD) Suicide Anesthesia complication Bleeding disorder Stroke Social History Smoking and tobacco/nicotine status: former use of tobacco/nicotine Alcohol intake: never Substance/Drug Use: never Physical Exam Const: COMMON NORMALS: no acute distress GENERAL APPEARANCE: cooperative and comfortable ORIENTATION/CONSCIOUSNESS: Yes awake, Yes oriented to person, Yes oriented to place and Yes oriented to time HENMT: COMMON NORMALS: normocephalic and hearing grossly normal bilaterally HEAD & SCALP: normocephalic OTHER: 4 cm laceration midline laceration over the occiput. No active bleeding. Neck/C-Spine: OTHER: No pain or step-offs with palpation along the cervical spine patient has full range of motion. C-spine cleared clinically at the bedside Resp: COMMON NORMALS: normal respiratory effort, No retractions, No use of accessory muscles and clear to auscultation bilaterally AUSCULTATION: clear to auscultation bilaterally Cardio: COMMON NORMALS: regular rate, regular rhythm and No murmurs present (Cardio) RATE: regular rate RHYTHM: regular rhythm GI: COMMON NORMALS: Soft to palpation and No hepatosplenomegaly present AUSCULTATION: Yes normoactive bowel sounds PALPATION: Yes Soft to palpation, No Tenderness to palpation present (GI), No Guarding due to palpation present (GI) and Yes No hepatosplenomegaly present Extremity: COMMON NORMALS: normal to inspection, capillary refill normal, no clubbing, cyanosis or edema, no calf tenderness and no pedal edema Neuro: SENSORIUM/ORIENTATION: Yes oriented to person, Yes oriented to place and Yes oriented to time Skin: COMMON NORMALS: no rashes or lesions noted GENERAL SKIN EXAM: no rashes or lesions noted Procedures Laceration Laceration 1: Site: scalp Size (cm): 4 Description: linear Depth: simple, single layer Local Anesthetic: lidocaine 1% and with epi Amount of anesthesia used (mL): 3 Pre-repair: irrigated extensively Skin layer closed with: other (Prasanth) Course Vital Signs: Vital signs: Vital Signs Temperature 97.8 F 11/15/24 09:08 Pulse Rate 61 11/15/24 12:01 Respiratory Rate 16 11/15/24 11:19 Blood Pressure 148/76 11/15/24 12:01 Pulse Oximetry 97 11/15/24 12:01 Oxygen Delivery Me thod Room Air 11/15/24 09:16 MDM - Head Injury Medcial Decision Making CT of the head negative for any acute pathology. Laceration repaired see procedure note. Prasanth to be removed in 7 to 10 days Lab Data Radiology Impressions Head CT 11/15/24 09:00 IMPRESSION: 1. No acute intracranial hemorrhage or edema. 2. Mild progression of atrophy and moderate small vessel disease since 2014. 3. Scalp contusion with laceration centered over the high midline parietal region. 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 See Rx Instructions .Route .MEDSUPPLY Qty: 1 0RF Rx Instructions: As directed amlodipine 5 mg tablet 5 mg PO DAILY Qty: 90 3RF cyanocobalamin (vitamin B-12) 1,000 mcg/mL solution 1,000 mcg SUBCUT .monthly Qty: 1 3RF Rx Instructions: on the 1st hydralazine 100 mg tablet 100 mg PO BID Qty: 180 3RF aspirin [Adult Low Dose Aspirin] 81 mg tablet,delayed release (DR/EC) 81 mg PO QAM latanoprost 0.005 % drops 1 drp ophthalmic (eye) BEDTIME dorzolamide 2 % drops 1 drp ophthalmic (eye) BID atorvastatin 20 mg tablet 20 mg PO QPM warfarin 6 mg tablet See Rx Instructions .ROUTE .COMPLEX Protocol: Dose Management Condition: Wednesday Dose/Route: 5 mg Instruction: 1 x 5 mg tablet Condition: Wednesday Dose/Route: 6 mg Instruction: 1 x 6 mg tablet Condition: Wednesday Dose/Route: 5 mg Instruction: 1 x 5 mg tablet Condition: Wednesday Dose/Route: 6 mg Instruction: 1 x 6 mg tablet Condition: Dose/Route: 5 mg Instruction: 1 x 5 mg tablet Condition: Wednesday Dose/Route: 6 mg Instruction: 1 x 6 mg tablet Condition: Wednesday Dose/Route: 5 mg Instruction: 1 x 5 mg tablet Protocol Text: Adjustment Start Date: Wednesday11/13/24 INR Value: 2.4 INR Date: 11/13/24 Recheck Date: 11/20/24 Rx Instructions: Take 1 tablet by mouth on Wednesday, Wednesday and Wednesday. potassium chloride 8 mEq tablet extended release 8 meq PO DAILY warfarin 5 mg tablet See Rx Instructions .ROUTE .COMPLEX Protocol: Dose Management Condition: Wednesday Dose/Route: 5 mg Instruction: 1 x 5 mg tablet Condition: Wednesday Dose/Route: 6 mg Instruction: 1 x 6 mg tablet Condition: Wednesday Dose/Route: 5 mg Instruction: 1 x 5 mg tablet Condition: Wednesday Dose/Route: 6 mg Instruction: 1 x 6 mg tablet Condition: Dose/Route: 5 mg Instruction: 1 x 5 mg tablet Condition: Wednesday Dose/Route: 6 mg Instruction: 1 x 6 mg tablet Condition: Wednesday Dose/Route: 5 mg Instruction: 1 x 5 mg tablet Protocol Text: Adjustment Start Date: Wednesday11/13/24 INR Value: 2.4 INR Date: 11/13/24 Recheck Date: 11/20/24 Rx Instructions: Take 1 tablet by mouth on Wednesday, Wednesday, and Wednesday. metoprolol tartrate 50 mg tablet 75 mg PO BID losartan 100 mg tablet 100 mg PO QPM Discharge Orders: Discharge ED (Routine); Ordered 11/15/24 Ordered By: Alvin Freire Referrals: Kale Agosto MD [Primary Care Provider, Family Practice] Discharge Diet: Usual diet Discharge Activity: Resume usual activity Patient Instructions: Opioid Safety, Pain Management, Patient Portal & Mona Instructions Activity Restrictions/Additional Instructions: Thank you for choosing [facility] for your healthcare needs today. It is very important that you follow up as instructed or that you return to the Emergency Department should you have concerns or if your condition changes or worsens in any way. Emergency department visits are focused on emergent conditions, in some cases you may require further evaluation on an outpatient basis. You were seen in the emergency room after a fall. CT of your head was negative your INR level is therapeutic. Laceration of the scalp was closed with prasanth that should be removed with your primary care doctor in 7 to 10 days. Apply [id number] topical antibiotic ointment to the wound on the scalp until the prasanth are removed. (Please note that included in your discharge packet is information concerning opioid safety and pain management. This information is given to all patients were discharged from the ER regardless of their discharge diagnosis or the medicines they usually take or are prescribed.) Print Language: B[place]udian Coding Level of Care Code ED Social Media Marketing Analyst for Shae Andrews
[2024-11-15 10:51] LABS: INR 2.33 (0.8-1.2); Prothrombin Time 26.90 SECONDS (12.1-14.9)
[2024-11-15 11:19] VITALS: BP 139/77; PULSE 61; RESP 16; O2SAT 97
--- NOTE | 2024-11-15 11:19 | PC.PHAR ---
Pt has medication list that is a bit old. Verified all current medications with pt and verified with [facility].
[2024-11-15] MEDS: lidocaine-epi 1% 20 mL INJ INJECTION (11:37)
[2024-11-15 12:01] VITALS: BP 148/76; PULSE 61; O2SAT 97
== END 2024-11-15 12:03 | disposition home or self-care (01) ==
PROVIDERS: Emergency Provider Family Medicine; PCP Family Medicine
DX: S01.01XA Laceration without foreign body of scalp, initial encounter (principal); Z79.82 Long term (current) use of aspirin; Z79.01 Long term (current) use of anticoagulants; Z87.891 Personal history of nicotine dependence; E78.5 Hyperlipidemia, unspecified; I10 Essential (primary) hypertension; Z86.73 Personal history of transient ischemic attack (TIA), and cerebral infarction without residual deficits; W19.XXXA Unspecified fall, initial encounter
CPT/HCPCS: 12002; 36415; 70450; 85610; 99284; J9999

== ENCOUNTER → 2024-12-21 10:03 | Outpatient (BNVA) | payer MEDICARE, OTHER, SELFPAY | PROVIDERS: PCP Family Medicine; Visit Provider Internal Medicine Cardiovascular Disease | DX: Z53.9 Procedure and treatment not carried out, unspecified reason (principal) | CPT/HCPCS: 99398 ==

== ENCOUNTER → 2025-01-10 12:50 | Outpatient (BNVA) | payer MEDICARE, OTHER, SELFPAY | PROVIDERS: PCP Family Medicine; Visit Provider Internal Medicine Cardiovascular Disease | DX: Z45.018 Encounter for adjustment and management of other part of cardiac pacemaker (principal) | CPT/HCPCS: 93296 ==